=== PATIENT | male | born 1990 | race Hispanic/Latino ===

== ENCOUNTER 2017-06-15 15:00 | Inpatient (IN) | payer MEDICAID ==
[2017-06-15 15:04] VITALS: BMI 22.2
--- NOTE | 2017-06-15 15:21 | ED PDOC ---
Arrival/HPI - General Chief Complaint: Psychiatric Evaluation Time Seen by Provider: 06/15/17 15:15 Historian: Patient - History of Present Illness Narrative History of Present Illness (Text): 06/15/17 15:18 27-year-old male presents today as transfer from [facility] for psychiatric admission. Patient attempted to overdose on 20 bags of heroin. Is complaining of depression. Denies chest pain or shortness of breath. Denies abdominal pain. No other complaints Past Medical History - Provider Review Nursing Documentation Reviewed: Yes - Travel History Have you recently traveled outside [place] w/in the past 3 mons?: No - Infectious Disease Hx of Infectious Diseases: None - Psychiatric Hx Bipolar Disorder: Yes Hx Depression: Yes Hx Substance Use: Yes Other/Comment: substance abuse - Anesthesia Hx Anesthesia: No Family/Social History - Physician Review Nursing Documentation Reviewed: Yes Family/Social History: Unknown Family HX Smoking Status: Unknown If Ever Smoked Hx Alcohol Use: Yes Hx Substance Use: Yes Substance used: heroine, xanax Allergies/Home Meds Allergies/Adverse Reactions: Allergies haloperidol [From Haldol] Allergy (Verified 06/15/17 15:04) RASH Home Medications: Home Meds Medication Instructions Recorded Confirmed Mirtazapine [Remeron] 1 tab PO HS 06/15/17 06/15/17 Review of Systems - Review of Systems Constitutional: absent: Fatigue, Fevers Respiratory: absent: SOB, Cough Cardiovascular: absent: Chest Pain, Palpitations Gastrointestinal: absent: Abdominal Pain, Nausea, Vomiting Musculoskeletal: absent: Arthralgias Skin: absent: Rash, Pruritis Neurological: absent: Headache, Dizziness Psychiatric: Depression, Suicidal Ideation. absent: Anxiety Physical Exam Vital Signs Reviewed: Yes Temperature: Afebrile Blood Pressure: Normal Pulse: Regular Respiratory Rate: Normal Appearance: Positive for: Well-Appearing, Non-Toxic, Comfortable Pain Distress: None Mental Status: Positive for: Alert and Oriented X 3 - Systems Exam Head: Present: Atraumatic Respiratory/Chest: Present: Clear to Auscultation Cardiovascular: Present: Regular Rate and Rhythm Abdomen: No: Tenderness Upper Extremity: Present: Normal ROM Lower Extremity: Present: Normal ROM Neurological: Present: GCS=15, Speech Normal Skin: Present: Warm, Dry Psychiatric: Present: Alert, Oriented x 3, Depressed Mood Medical Decision Making ED Course and Treatment: 06/15/17 15:19 pt is Psych transfer from [facility]. pt with depression and SI. pt was medically cleared at [facility] for psychiatric admission Impression: Depression, opiate abuse Admitted to behavioral health floor Disposition/Present on Arrival - Present on Arrival Any Indicators Present on Arrival: No History of DVT/PE: No History of Uncontrolled Diabetes: No Urinary Catheter: No History of Decub. Ulcer: No History Surgical Site Infection Following: None - Disposition Have Diagnosis and Disposition been Completed?: Yes Diagnosis: Depression, Opiate abuse, episodic Disposition: HOSPITALIZED Disposition Time: 15:20 Patient Plan: Admission Condition: FAIR
[2017-06-15 17:19] VITALS: O2SAT 98
--- NOTE | 2017-06-15 20:35 | PCM.BM ---
<Jamison Gold - Last Filed: 06/15/17 20:32> Treatment Plan Problems - Problems identified on initial assessmt Medication non compliance Date Initiated: 06/15/17 Time Initiated: 18:00 Assessment reference: NA Status: Active Poor coping skills Date Initiated: 06/15/17 Time Initiated: 18:00 Assessment reference: NA Status: Active substance abuse Date Initiated: 06/15/17 Time Initiated: 18:00 Assessment reference: NA Status: Active Comment: heroin,xanax and alcohol poor sleep Date Initiated: 06/15/17 Assessment reference: NA Status: Active Comment: insomnia Treatment assets and liabiliti Patient Assests: insightful, ADL independent, negotiates basic needs Patient Liabilities: live alone, poor support system, substance abuse - Milieu Protocol Maintain good personal hygiene: daily Encourage regular showers, every shift Remind patient to perform daily oral care, every shift Assist patient to perform ADL's Conduct patient checks and document Observation sheet: Q15 minutes Maintain personal safety: every shift Educate patient to report safety concerns to staff, every shift Monitor environment for contraband/sharps Medication safety: Monitor for expected outcome, potential side effects: every shift, Assess barriers to learning: every shift, Assess readiness for medication education: every shift Discharge/Continuing Care - Education Needs Education Needs: Patient Medication, Patient Coping Skills, Patient Anger Management skills, Patient Community resources, Patient Activities of Daily Living, Patient Pain, Patient Nutrition, Patient Health Practices/Safety, Patient Personal Hygiene/Grooming, Patient Aftercare Safety Plan <Corina Park - Last Filed: 06/16/17 09:08> - Diagnosis (1) MDD (major depressive disorder) Status: Acute Interventions: 06/16/17 09:08 Psychoeducation Psychopharmacology/adjustment of medications as needed/ monitoring possible side effects Evaluate pt on daily basis Compliance with medications and follow up appointments Suicide and homicide risk assessment and prevention Relapse prevention Reduction of symptoms Improve functional status Family involvement As outpatient: cognitive behavioral therapy (2) Opioid dependence Status: Acute Interventions: 06/16/17 09:09 Monitoring withdrawal symptoms Medical detoxification Pharmacotherapy for alcohol/benzos/opioid dependence Maintaining sobriety Relapse prevention Possible rehabilitation Motivational interviewing 12-step programs: AA meetings <Leana Morris - Last Filed: 06/17/17 12:41>
[2017-06-16] MEDS ORDERED: DiphenhydrAMINE 50 mg/ml Inj IM SCH ×3
[2017-06-16] MEDS: Multivitamin Therapeutic Tab PO SCH (10:03)
--- NOTE | 2017-06-16 12:40 | PCM.PSYCH ---
Initial Psychiatric Evaluation - Initial Psychiatric Evaluation Type of Admission: Voluntary Legal Status: Capacity (patient has capacity to sign consent for treatment) Chief Complaint (in patient's own words): "I don't feel well, I was using drugs with hope to , there is no point for me to keep going, I'm very depressed, can give me Librium instead of Ativan?, I like this medication better" Patient's Reaction to Hospitalization: Patient was transferred from [facility] for evaluation and stabilization of depressive symptoms, suicidal ideation with a plan to overdose on drugs, patient was using heroine IV about 20 bags a day, patient requires further hospitalization and observation. History of Present Illness and Precipitating Events: shortly, patient is 27 year old male, self reported history of depression, opioid dependence, patient came to [facility] for evaluation of depressive symptoms and suicidal ideation with a plan to overdose on drugs, patient was not getting any treatment in the community, was not able to contract for safety, patient was transferred uneventfully, obviously patient needs further evaluation and observation in acute psychiatric setting. Patient was seen and examined today at the morning time next at the nursing station, patient appears to have poor personal hygiene, not shaved, obviously sweating, good ADLs. Patient reported that she was using IV sharing and about 20 bags a day, when was asked how he supports his habit patient reported that he was selling drugs, stealing, "I'm not proud of myself for doing that". Patient reported for past 2 weeks he was feeling extremely depressed, hopeless, helpless, worthless, guilty, patient had suicidal ideation with a plan to overdose on drugs, patient reported one day ago he wanted to overdose on drugs, but "I feel disappointed, I wake up". Patient reported that he lives with the mother who seems to be supportive. Patient reported that times he feels anxious, denied being abused, denied physical emotional or sexual abuse, at times he feels anxious but in the context of withdrawal from the opioids. No manic symptoms observed or reported. Patient denied visual, auditory, tactile hallucinations, denied paranoid ideations, patient mildly irritable but not psychotic. patient seems to be paranoid and irritable, excused himself and walk away. as per staff, no aggression, no agitation, patient was able to tolerate food. As per history patient has 1 visit to the emergency room at [facility] where he was diagnosed with moderate major depression, single episode. Patient was prescribed Seroquel by then. Patient does not remember about that. 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 patient reported smoking about 10:15 cigarettes a day, counseling provided, nicotine patch offered Medical history: Patient denied any major medical issues. Family history: Patient denied family history of mental illness, denied suicidal attempts. Labs reviewed from [facility]. Vital Signs Temp Pulse Resp BP Pulse Ox 06/16/17 07:41 98.1 F 52 L 20 86/48 L 06/15/17 21:25 68 138/74 06/15/17 17:00 98.1 F 68 18 138/74 98 06/15/17 15:00 98 F 65 18 101/60 99 Current Medications: Active Medications Generic Name Dose Route Start Last Admin Trade Name Freq PRN Reason Stop Dose Admin Clonidine HCl 0.1 mg 06/15/17 21:03 06/15/17 21:25 Catapres PO 0.1 mg Q12 PRN Administration Withdrawal Diphenhydramine HCl 50 mg 06/15/17 18:22 Benadryl PO Q6 PRN Insomnia Diphenhydramine HCl 50 mg 06/15/17 18:37 Benadryl IM Q6 PRN Allergy symptoms Folic Acid 1 mg 06/16/17 08:00 Folic Acid PO DAILY BONNIE Gabapentin 300 mg 06/15/17 22:00 06/15/17 21:18 Neurontin PO 300 mg HS BONNIE Administration Protocol Gabapentin 300 mg 06/15/17 18:00 06/15/17 18:41 Neurontin PO 300 mg TID BONNIE Administration Protocol Haloperidol 5 mg 06/15/17 18:00 Haldol PO Q6 PRN Agitation Protocol Haloperidol Lactate 5 mg 06/15/17 18:05 Haldol IM Q6 PRN Agitation Protocol Ibuprofen 800 mg 06/15/17 17:52 Motrin Tab PO Q8H PRN Pain, severe (8-10) Lorazepam 2 mg 06/15/17 18:02 06/15/17 21:17 Ativan PO 2 mg Q6 PRN Administration Agitation Protocol Lorazepam 2 mg 06/15/17 18:08 Ativan IM Q6H PRN Agitation Protocol Multivitamins 1 tab 06/16/17 08:00 Thera Tab PO 0800 BONNIE Ondansetron HCl 4 mg 06/15/17 17:49 Zofran Odt PO Q8H PRN Nausea/Vomiting Quetiapine Fumarate 50 mg 06/15/17 22:00 06/15/17 21:16 Seroquel PO 50 mg HS BONNIE Administration Protocol Thiamine HCl 100 mg 06/16/17 08:00 Vitamin B1 Tab PO DAILY BONNIE Tramadol HCl 50 mg 06/15/17 17:49 06/15/17 18:32 Ultram PO 50 mg BID PRN Administration Pain, moderate (4-7) Tramadol HCl 50 mg 06/15/17 17:51 06/15/17 21:19 Ultram PO 50 mg HS PRN Administration Pain, moderate (4-7) Zolpidem Tartrate 5 mg 06/15/17 22:00 06/15/17 21:19 Ambien PO 5 mg HS PRN Administration Insomnia Protocol Past Psychiatric History - Past Psychiatric History Previous Treatment History: Inpatient Prior Professional Help: see HPI Prior Psychiatric Treatment: see HPI At what hospital: see HPI Duration: see HPI Nature of Treatment: see HPI Explanation of prior treatment: see HPI History of Abuse: see HPI History of ETOH/Drug Use: see HPI History of Family Illness: see HPI Pertinent Medical Hx (Current Medical&Sleep Prob, Allergies): Allergies Allergy/AdvReac Type Severity Reaction Status Date / Time haloperidol [From Haldol] Allergy RASH Verified 06/15/17 17:30 Mirtazapine [Remeron] 1 tab PO HS 06/15/17 Review of Systems - Review of Systems Systems not reviewed;Unavailable: Acuity of Condition - EENT Eyes: As Per HPI Ears: As Per HPI Nose/Mouth/Throat: As Per HPI - Cardiovascular Cardiovascular: As Per HPI - Respiratory Respiratory: As Per HPI - Gastrointestinal Gastrointestinal: As Per HPI - Genitourinary Genitourinary: As Per HPI - Reproductive: Male Reproductive:Male: As Per HPI - Musculoskeletal Musculoskeletal: As Par HPI - Integumentary Integumentary: As Per HPI - Neurological Neurological: As Per HPI - Psychiatric Psychiatric: As Per HPI - Endocrine Endocrine: As Per HPI - Hematologic/Lymphatic Hematologic: As Per HPI Mental Status Examination - Personal Presentation Personal Presentation: Looks older than stated age - Affect Affect: Flat (and irritable) - Motor Activity Motor Activity: Psychomotor Retardation - Reliability in Providing Information Reliability in Providing Information: Poor, due to altered mood - Speech Speech: Organized - Mood Mood: Depressed - Formal Thought Process Formal Thought Process: No Impairment - Obsessions/Compulsions Obsessions: None Compulsions: None - Cognitive Functions Orientation: Person, Place Sensorium: Alert Attention/Concentration: Easily distracted Abstract Thinking: Esopus Estimate of Intelligence: Below average Judgement: Intact, as evidence by: Insight regarding need for hospitalization - Risk Risk: Suicidal, Withdrawal, Self-mutilation, Diminished functioning - Strength & Assets Inventory Strength & Assets Inventory: Family support, Cooperative - Limitations Limitations: Other (severe substance abuse) DSM 5 DX - DSM 5 DSM 5 Diagnosis: rule out major depressive disorder Rule out substance-induced mood disorder Opioid and alcohol use disorder Rule out opioid and alcohol withdrawal symptoms Rule out antisocial personality disorder - Recommended/Plan of Treatment Treatment Recommendations and Plan of Treatment: Milieu/structure/supportive therapy Medical consult will be considered SW consultation for discharge plan patient wants to go to inpatient rehabilitation Med management multivitamins, folic acid, thiamine Vital signs will be monitored Librium 50 mg 3 times a day scheduled for alcohol withdrawal symptoms Neurontin 300 mg 3 times a day for anxiety Ambien for insomnia Prozac 20 mg daily for depression and anxiety Seroquel 100 mg at the nighttime for mood stabilization as needed medications Family involvement Follow up on labs Will monitor closely Pt was educated about risk/benefits and alternatives of medications, coping strategies (safety plan, suicide prevention), relapse prevention, importance of follow up with psychiatrist and therapist, stay away from drugs/alcohol/smoking Projected ELOS: 7 days Prognosis: uarded Discharge Plan and Discharge Criteria: Pt will be not depressed or manic, will be more hopeful, will be not psychotic or anxious, will be not having thoughts of harming self or others, will be tolerating medications well, will not have major side effects, will be able to function, will not pose threat to self or others. - Smoking Cessation Smoking Cessation Initiated: Yes
[2017-06-17] MEDS: Multivitamin Therapeutic Tab PO SCH (08:29)
--- NOTE | 2017-06-17 13:48 | PCM.PYCHPN ---
Psychiatric Progress Note - Psychiatric Progress Note Patient seen today, length of contact: 25 min Problems Identified/Issues Discussed: I reviewed admission assessment. Patient is 27 year old male, self reported history of depression, opioid dependence who was transferred from [facility] after presenting with depression and suicidal ideation to overdose on drugs in context of continued IV heroin use (x20 bags daily) as well as alcohol use. I reviewed recent notes. I attempted to interview patient at bedside and later during treatment team meeting. He is unkempt and very reluctant to engage in an interview. Affect is brittle, edgy and dismissive. He reports anxiety and denies any other concerns (mostly because he wants to end the interview). He tells me that he wants to be left alone. He denies any perceptual disturbance, SI or HI. Patient barely tolerates this provider's review of his medications and treatment plan before interrupting me to conclude the interview. This happens during both my visits with him. Patient signs the treatment plan and denies having any further questions. Per staff notes patient has been aloof and guarded. Yesterday patient made a threat against his roommate because roommate's pacing was annoying him. Patient was given Haldol 5 mg and Benadryl 50 mg for agitation and roommate was moved to another room. Patient is not engaged in the milieu and does not attend groups. Behavior remains unpredictable, likely secondary to acute withdrawal symptoms. Patient is not disorganized, just unhappy and irritable. Diagnostic Results: Rule out major depressive disorder Rule out substance-induced mood disorder Opioid and alcohol use disorder Rule out opioid and alcohol withdrawal symptoms Rule out antisocial personality disorder Medication Change: Yes (vistaril 50 mg q6 prn) Medical Record Reviewed: Yes Mental Status Examination - Cognitive Function Orientation: Person, Place Attention: Poor Concentration: Poor Fund of Knowledge: Poor - Mood Mood: Depressed - Affect Affect: Flat (and irritable), Other (labile, irritable, edgy and dismissive) - Speech Speech: Soft - Formal Thought Process Formal Thought Process: No Impairment - Suicidal Ideation Suicidal Ideation: No - Homicidal Ideation Homicidal Ideation: No Goal/Treatment Plan - Goal/Treatment Plan Progress Toward Problem(s) and Goals/Treatment Plan: * c/w current tx and plan * vistaril 50 mg q6 prn: anxiety started today * No new labs today thus far * Vitals reviewed and noted below: Selected Entries 06/16/17 06/16/17 06/17/17 07:41 16:00 06:55 Temperature 98.1 F Pulse Rate 52 L 67 56 L Respiratory 20 20 Rate Blood Pressure 86/48 L 104/62 88/48 L
[2017-06-18] MEDS: Multivitamin Therapeutic Tab PO SCH (07:17)
[2017-06-18] MEDS: DiphenhydrAMINE 50 mg/ml Inj IM PRN ×2 (11:02→16:37)
--- NOTE | 2017-06-18 11:02 | PCM.PYCHPN ---
Psychiatric Progress Note - Psychiatric Progress Note Patient seen today, length of contact: 25 min Problems Identified/Issues Discussed: I reviewed recent notes which indicate that patient has been irritable, ungrateful and constantly medication seeking. I interview him in the dayroom, he remains unkempt and oriented x3. Patient is withdrawing and as a result has been short-tempered and taking it out on staff who "f*cking lie to me all day". Patient is darcy and dismissive with questioning unless he wants something. He is not interested in engaging in psychiatric care "I don't want to talk right now" and admits he came to our unit because all the detox centers were full. Mood is labile however he is not suicidal or psychotic. At this time mood, anxiety and behavioral symptoms are primarily because of withdrawal. Admits to symptoms of fatigue, body aches and poor sleep. He denies any new pain or side effects from his medications. He put in a 48 hour letter yesterday at 3:30 pm. Diagnostic Results: Rule out major depressive disorder Rule out substance-induced mood disorder Opioid and alcohol use disorder Rule out opioid and alcohol withdrawal symptoms Rule out antisocial personality disorder Medication Change: Yes (vistaril 50 mg q6 prn) Medical Record Reviewed: Yes Mental Status Examination - Cognitive Function Orientation: Person, Place Attention: Poor Concentration: Poor Fund of Knowledge: Poor - Mood Mood: Depressed - Affect Affect: Flat (and irritable), Other (labile, irritable, edgy and dismissive) - Speech Speech: Soft - Formal Thought Process Formal Thought Process: No Impairment - Suicidal Ideation Suicidal Ideation: No - Homicidal Ideation Homicidal Ideation: No Goal/Treatment Plan - Goal/Treatment Plan Progress Toward Problem(s) and Goals/Treatment Plan: * c/w current tx and plan * vistaril 50 mg q6 prn: anxiety started 06/17/17 * Seroquel increased to 50/50/150 to help with mood lability * librium decreased to 50 mg po q8, vitals have been stable * No new labs today thus far * Plan for patient to be discharged AMA on 48 hour letter tomorrow on 06/19/17 * Vitals reviewed and noted below: Selected Entries 06/18/17 07:26 Temperature 97.9 F Pulse Rate 83 Respiratory 20 Rate Blood Pressure 110/61
[2017-06-19 07:12] VITALS: TEMP 97.6
[2017-06-19] MEDS: Multivitamin Therapeutic Tab PO SCH (07:52)
--- NOTE | 2017-06-19 11:29 | PCM.PYCHPN ---
Psychiatric Progress Note - Psychiatric Progress Note Patient seen today, length of contact: 25 min Problems Identified/Issues Discussed: I have reviewed admission assessment. Patient is 27 year old male, self reported history of depression, opioid dependence who was transferred from [facility] after presenting with depression and suicidal ideation to overdose on drugs in context of continued IV heroin use (x20 bags daily) as well as alcohol use.. I reviewed recent notes which indicate that patient continues to be irritable, ungrateful, morgan and constantly medication seeking. He put in a 48 hour letter on Tuesday at 3:30 pm and screener was called on Tuesday because patient was angry, labile and threatening to destroy objects. I agree with staff notes that indicate that patient can easily swing from calm and cooperative to angry and demanding. I interview him in the hallway today and he agrees to retract his 48 hour letter, agreeing that his mood and impulses are still impulsive and unstable. This letter was retracted at 7:30 am and screeners were canceled. However an hour later patient placed another 48 hour letter because he didn't receive his prn medications. Screeners were called again and evaluated patient at 10:30 am. Patient was not accepted for involuntary transfer to [facility]. Obviously patient is unhappy and unpredictable. He is tolerating his medications thus far, including the increase in Seroquel. Slept a little better last night. Admits to withdrawal symptoms of fatigue and body aches but denies any new pain/ discomfort not related to withdrawal. Patient is still darcy and dismissive with questioning unless he wants something. He is not interested in engaging in psychiatric care and on Tuesday he indicated that he came to our unit because all the detox centers were full. As noted above, mood is labile however he is not suicidal or psychotic. At this time mood and behavioral symptoms are primarily secondary to withdrawal and there is concern that he will act out if discharged. Patient can barely maintain his temper and self control on the unit even with medications. Admits to symptoms of fatigue, body aches and poor sleep. He denies any new pain or side effects from his medications. He put in. Diagnostic Results: Rule out major depressive disorder Rule out substance-induced mood disorder Opioid and alcohol use disorder Rule out opioid and alcohol withdrawal symptoms Rule out antisocial personality disorder Medication Change: Yes (vistaril 50 mg q6 prn) Medical Record Reviewed: Yes Mental Status Examination - Cognitive Function Orientation: Person, Place, Situation Memory: Intact Attention: WNL Concentration: Poor Association: WNL Fund of Knowledge: WNL - Mood Mood: Anxious - Affect Affect: Broad - Speech Speech: Appropriate - Formal Thought Process Formal Thought Process: No Impairment Psychotic Thoughts and Behaviors: Patient denies hallucinations and delusions were not elicited. - Suicidal Ideation Suicidal Ideation: No - Homicidal Ideation Homicidal Ideation: No Goal/Treatment Plan - Goal/Treatment Plan Progress Toward Problem(s) and Goals/Treatment Plan: * c/w current tx and plan * vistaril 50 mg q6 prn: anxiety started 06/17/17 * Seroquel increased to 100/100/200 on 06/19/17 to help with mood lability * librium tapered to 50 mg po AMHS on 06/19/17 and then switched to Ativan 2 mg AMHS--as patient feels that ativan may be more beneficial for mood and anxiety symptoms. Vitals have been stable * No new weekend labs * Vitals reviewed and noted below: 06/18/17 07:26 Temperature 97.9 F Pulse Rate 83 Respiratory 20 Rate Blood Pressure 110/61 * Patient placed 48 hour letter on 06/17/17 at 3:30 pm. Screeners were called on 06/18/17 because patient threatened to become destructive on the unit. * On 06/19/17, patient retracted letter at 7:30 am and screeners were canceled. * On 06/19/17 patient put in another 48 hour letter at 8:30 am. Screeners were called again and evaluated patient around 10:30 am. Patient was not accepted for involuntary transfer to [facility].
[2017-06-19] MEDS ORDERED: Benzocaine 20% Cream(7 gm) MT PRN (14:05)
[2017-06-20 07:12] VITALS: BP 139/87; PULSE 60; RESP 20
[2017-06-20] MEDS: Multivitamin Therapeutic Tab PO SCH (07:55)
--- NOTE | 2017-06-20 15:06 | PCM.PYCHDC ---
Mental Status Examination - Mental Status Examination Orientation: Person, Place, Situation, Time Memory: Intact Mood: Neutral Affect: Constricted Speech: Appropriate Attention: WNL (some improvement) Concentration: WNL (some improvement) Association: WNL Fund of Knowledge: Poor (baseline) Formal Thought Process: No Impairment Description of patient's judgement and insight: Pt has improved insight into mental and substance abuse problems, pt was compliant with medications and unit rules and regulations, pt was socially appropriate, no behavioral incidents, no agitation, no aggression. Psychotic Thoughts and Behaviors: Pt denied v/a/t hallucinations, denied paranoid ideations, pt does not appear to be psychotic, and thought process is goal directed. Suicidal Ideation: No Current Homicidal Ideation?: No Plan: pt adamantly denied thoughts of harming self or others denied intent or plan. Discharge Summary - Discharge Note Reason for Hospitalization: Patient was transferred from [facility] for evaluation and stabilization of depressive symptoms, suicidal ideation with a plan to overdose on drugs, patient was using heroine IV about 20 bags a day, patient requires further hospitalization and observation. Psychiatric History (includes Medical, Family, Personal Hx): see HPI Laboratory Data: Vital Signs Temp Pulse Resp BP Pulse Ox 06/20/17 07:05 97.6 F 60 20 139/87 06/19/17 16:00 52 L 102/60 06/19/17 07:10 97.6 F 50 L 22 101/83 06/18/17 16:00 64 102/64 06/18/17 07:26 97.9 F 83 20 110/61 06/17/17 16:04 67 97/61 L 06/17/17 06:55 56 L 20 88/48 L 06/16/17 16:00 67 104/62 06/16/17 07:41 98.1 F 52 L 20 86/48 L 06/15/17 21:25 68 138/74 06/15/17 17:00 98.1 F 68 18 138/74 98 06/15/17 15:00 98 F 65 18 101/60 99 Consultations:: List each consultation separately and include: 1. Reason for request. 2. Findings. 3. Follow-up Consultations: pt has good physical health did not required to be seen by medical team Summary of Hospital Course include:: 1. Description of specific treatment plan utilized for patients during their course of treatmen. 2. Summarize the time- course for resolution of acute symptoms and/or regressed behaviors. 3. Describe issues identified and worked on during hospitalization. 4. Describe medication utilized. 5. Describe medical problems identified and treated. 6. Reassessment of suicide risk Summary of Hospital Course: shortly, patient is 27 year old male, self reported history of depression, opioid dependence, patient came to [facility] for evaluation of depressive symptoms and suicidal ideation with a plan to overdose on drugs, patient was not getting any treatment in the community, was not able to contract for safety, patient was transferred uneventfully, obviously patient needed evaluation and observation in acute psychiatric setting. Initially pt was seen next at the nursing station, patient appears to have poor personal hygiene, not shaved, obviously sweating, good ADLs. Patient reported that she was using IV sharing and about 20 bags a day, when was asked how he supports his habit patient reported that he was selling drugs, stealing, "I'm not proud of myself for doing that". Patient reported for past 2 weeks he was feeling extremely depressed, hopeless, helpless, worthless, guilty, patient had suicidal ideation with a plan to overdose on drugs, patient reported one day ago he wanted to overdose on drugs, but "I feel disappointed, I wake up". Patient reported that he lives with the mother who seems to be supportive. Patient reported that times he feels anxious, denied being abused, denied physical emotional or sexual abuse, at times he feels anxious but in the context of withdrawal from the opioids. No manic symptoms observed or reported. Patient denied visual, auditory, tactile hallucinations, denied paranoid ideations, patient mildly irritable but not psychotic. patient seems to be paranoid and irritable, excused himself and walk away. as per staff, no aggression, no agitation, patient was able to tolerate food. As per history patient has 1 visit to the emergency room at [facility] where he was diagnosed with moderate major depression, single episode. Patient was prescribed Seroquel by then. Patient does not remember about that. Patient reported that she was drinking alcohol approximately half of the patient or father, effort other day, this proposal manager writer will prescribe Librium with a plan to taper that off, multivitamins, thiamine, folic acid will be started. patient reported smoking about 10:15 cigarettes a day, counseling provided, nicotine patch offered Medical history: Patient denied any major medical issues. Family history: Patient denied family history of mental illness, denied suicidal attempts. Labs reviewed from [facility]. Vital Signs Temp Pulse Resp BP Pulse Ox 06/16/17 07:41 98.1 F 52 L 20 86/48 L 06/15/17 21:25 68 138/74 06/15/17 17:00 98.1 F 68 18 138/74 98 06/15/17 15:00 98 F 65 18 101/60 99 over the weekend pt submitted 48hr notice, pt was screened by [facility] was found to be not committable pt was advised to stay in the hospital, but pt adamantly refused pt denied thoughts of harming self or others pt did not give permission to speak to his family over the weekend pt was not agitated, was not aggressive, not psychotic pt sill has his mood swings pt has good appetite and fair sleep. At the time of the discharge pt denied been depressed, denied thoughts of harming self or others, denied psychotic symptoms, and pt does not appeared to be psychotic, denied been anxious, pt is not in imminent danger to self or others, will be following up at [facility], information about follow up appointment, time and address provided to the pt, it is patient responsibility to follow up with outpatient clinic, PMD as well as specialists (see note for more detailed information). In case pt will need to obtain results of studies pending at discharge pt was provided with contact information of Psychiatric Inpatient unit [phone] as well as Medical Record Department [phone]. Nicotine patch was offered Counseling about smoking and alcohol cessation provided AA meetings as well as smoking cessation treatment program information was provided by the pt is not a good candidate fro naltrexon therapy pt was provided with prescriptions for all of medications (please see medication reconciliation form) Pt was educated about safety plan in case of worsening of symptoms or in case of suicidal or homicidal ideation call 911 or go to the nearest ER, also was educated to take meds as prescribed and stay away from drugs, pt verbalized understanding - Diagnosis (1) MDD (major depressive disorder) Current Visit: Yes Status: Acute Priority: Medium (2) Opioid dependence Current Visit: Yes Status: Chronic Priority: High - Final Diagnosis (DSM 5) Condition upon Discharge: STABLE Disposition: AGAINST MEDICAL ADVICE Follow-up Treatment Plan: At the time of the discharge pt denied been depressed, denied thoughts of harming self or others, denied psychotic symptoms, and pt does not appeared to be psychotic, denied been anxious, pt is not in imminent danger to self or others, will be following up at [facility], information about follow up appointment, time and address provided to the pt, it is patient responsibility to follow up with outpatient clinic, PMD as well as specialists (see note for more detailed information). In case pt will need to obtain results of studies pending at discharge pt was provided with contact information of Psychiatric Inpatient unit [phone] as well as Medical Record Department [phone]. Nicotine patch was offered Counseling about smoking and alcohol cessation provided AA meetings as well as smoking cessation treatment program information was provided by the pt is not a good candidate fro naltrexon therapy pt was provided with prescriptions for all of medications (please see medication reconciliation form) Pt was educated about safety plan in case of worsening of symptoms or in case of suicidal or homicidal ideation call 911 or go to the nearest ER, also was educated to take meds as prescribed and stay away from drugs, pt verbalized understanding Prescriptions/Medication Reconciliation: FLUoxetine [Prozac] 20 mg PO DAILY #14 cap Folic Acid 1 mg PO DAILY #14 tab Gabapentin [Neurontin] 600 mg PO BID #30 tab LORazepam [Ativan] 1 mg PO AMHS #7 tab Multivitamin Therapeutic Tab [Thera Tab] 1 tab PO 0800 #14 tab Nicotine 14 mg/24 hr [Nicoderm CQ] 1 patch TD DAILY #14 patch Quetiapine Fumarate [Seroquel] 200 mg PO AMHS #30 tablet Thiamine [Vitamin B1 Tab] 100 mg PO DAILY #14 tab - Smoking Cessation Smoking Cessation Medication prescribed: Yes - Antipsychotic Medications Pt discharged on 2 or more routine antipsychotic medications: No
== END 2017-06-20 15:45 | disposition left against medical advice (07) | DRG 426 ==
LOC: ED 15:00 → ERH 15:50 → PSYC 17:14
PROVIDERS: ADMIT Psychiatry & Neurology Psychiatry; ATTEND Psychiatry & Neurology Psychiatry
DX: F32.9 Major depressive disorder, single episode, unspecified (principal); F11.20 Opioid dependence, uncomplicated; F17.210 Nicotine dependence, cigarettes, uncomplicated